=== PATIENT | male | born 1955 | race Caucasian/White ===

== ENCOUNTER 2016-06-18 17:20 | Emergency (ER) | payer OTHER ==
[2016-06-18 17:48] VITALS: BMI 33.9
--- NOTE | 2016-06-18 19:29 | PDOC ---
History of Present Illness - History of Present Illness Initial Comments: 06/18/16 22:00 The patient is a 60 year old male with a PMHx of diabetes, HTN, hyperlipidemia who presents to the ED with dizziness today. Patient went to [facility] ER three days ago for hematuria and dysuria. At [facility], the patient had a catheter placed and discharged on cefpodoxime for UTI. The patient presents today because he believes the cefpodoxime caused the dizziness. Patient also reports back, shoulder, and chest pain from a fall 10 days ago. He was seen in the ER and was discharged with pain medication for musculoskeletal pain. He reports a decreased appetite. He reports recent travel, to in April. He denies fever, chills, nausea, vomiting, diarrhea. <Laverne Gao - Last Filed: 06/19/16 00:48> <Kae Watson - Last Filed: 06/19/16 08:35> - General Chief Complaint: Urinary Catheter Problem Stated Complaint: URINARY CATHETER PROBLEM Time Seen by Provider: 06/18/16 19:29 Past History <Laverne Gao - Last Filed: 06/19/16 00:48> - Past Medical History Diabetes: Yes HTN: Yes Hypercholesterolemia: Yes - Psycho/Social/Smoking Cessation Hx Suicidal Ideation: No Smoking History: Never smoked <Kae Watson - Last Filed: 06/19/16 08:35> - Past Medical History Allergies/Adverse Reactions: Allergies Allergy/AdvReac Type Severity Reaction Status Date / Time No Known Allergies Allergy Verified 06/18/16 17:43 Home Medications: Ambulatory Orders Aspirin [ASA -] 81 mg PO DAILY 06/18/16 Atorvastatin Ca [Lipitor] 40 mg PO HS 06/18/16 Enalapril Maleate [Vasotec] 20 mg PO DAILY 06/18/16 Ezetimibe [Zetia -] 10 mg PO DAILY 06/18/16 Metformin HCl [Metformin HCl ER] 1,000 mg PO BID 06/18/16 Pioglitazone HCl 45 mg PO DAILY 06/18/16 Sitagliptin Phosphate [Januvia] 100 mg PO DAILY 06/18/16 Cefpodoxime Proxetil [Vantin -] 100 mg PO BID #10 tablet 06/19/16 Polyethylene Glycol 3350 [Miralax (For Daily Use) -] 17 gm PO DAILY #1 bottle Review of Systems - Review of Systems Comments:: 06/18/16 22:00 GENERAL/CONSTITUTIONAL: No fever or chills. No weakness. HEAD, EYES, EARS, NOSE AND THROAT: No change in vision. No ear pain or discharge. No sore throat. CARDIOVASCULAR: No chest pain or shortness of breath. RESPIRATORY: No cough, wheezing, or hemoptysis. GASTROINTESTINAL: No nausea, vomiting, diarrhea or constipation. GENITOURINARY: + hematuria, dysuria. No frequency. MUSCULOSKELETAL: + shoulder pain, bakck pain. No neck pain. SKIN: No rash NEUROLOGIC: + dizziness. No headache, loss of consciousness, or change in strength/sensation. ENDOCRINE: No increased thirst. No abnormal weight change. HEMATOLOGIC/LYMPHATIC: No anemia, easy bleeding, or history of blood clots. ALLERGIC/IMMUNOLOGIC: No hives or skin allergy. <Laverne Gao - Last Filed: 06/19/16 00:48> *Physical Exam - Vital Signs Last Vital Signs Temp Pulse Resp BP Pulse Ox 97.7 F 99 H 18 153/86 97 06/18/16 17:43 06/18/16 17:43 06/18/16 17:43 06/18/16 17:43 06/18/16 17:43 - Physical Exam Comments: 06/18/16 22:02 GENERAL: Awake, alert, and fully oriented, in no acute distress HEAD: No signs of trauma EYES: PERRLA, EOMI, sclera anicteric, conjunctiva clear ENT: Auricles normal inspection, hearing grossly normal, nares patent, oropharynx clear without exudates. Moist mucosa NECK: Normal ROM, supple, no lymphadenopathy, JVD, or masses LUNGS: Breath sounds equal, clear to auscultation bilaterally. No wheezes, and no crackles HEART: Tachycardic rate and regular rhythm, normal S1 and S2, no murmurs, rubs or gallops ABDOMEN: Soft, nontender, normoactive bowel sounds. No guarding, no rebound. No masses EXTREMITIES: Normal range of motion, no edema. No clubbing or cyanosis. No cords, erythema, or tenderness NEUROLOGICAL: Cranial nerves II through XII grossly intact. Normal speech, normal gait SKIN: Warm, Dry, normal turgor, no rashes or lesions noted. <Carlie Gaoobmissy Ibarra - Last Filed: 06/19/16 00:48> - Vital Signs Last Vital Signs Temp Pulse Resp BP Pulse Ox 97.7 F 99 H 18 153/86 97 06/18/16 17:43 06/18/16 17:43 06/18/16 17:43 06/18/16 17:43 06/18/16 17:43 <Watson,Kae - Last Filed: 06/19/16 08:35> ED Treatment Course - LABORATORY CBC & Chemistry Diagram: 06/18/16 20:21 06/18/16 20:21 - ADDITIONAL ORDERS Additional order review: Laboratory Results 06/18/16 06/18/16 06/18/16 20:21 20:21 19:50 Sodium 141 Potassium 4.0 Chloride 105 Carbon Dioxide 26 Anion Gap 10 BUN 27 H Creatinine 0.8 Creat Clearance w eGFR > 60 Random Glucose 108 H Calcium 9.7 Total Bilirubin 0.2 AST 17 ALT 23 Alkaline Phosphatase 231 H Creatine Kinase 99 Troponin I < 0.02 Total Protein 7.6 Albumin 4.1 Urine Color Yellow Urine Appearance Cloudy Urine pH 6.0 Ur Specific [place] 1.015 Urine Protein 1+ H Urine Glucose (UA) Negative Urine Ketones Negative Urine Blood 3+ H Urine Nitrite Negative Urine Bilirubin Negative Urine Urobilinogen Negative Ur Leukocyte Esterase Negative Urine RBC 3326 Urine WBC 121 Urine Mucus Rare 06/18/16 20:21 RBC 4.93 MCV 85.4 MCHC 32.9 RDW 15.9 MPV 7.7 Neutrophils % 67.6 Lymphocytes % 21.3 Monocytes % 9.7 Eosinophils % 0.9 Basophils % 0.5 - RADIOLOGY Radiograph Interpretation: 06/19/16 00:[address] Reported by Dr. Barrera Hussein Impression: Nonspecific lung nodules bilaterally may be benign or malignant. If clinically indicated followup evaluation may be needed. Small hiatal hernia. Constipation with diverticulosis without diverticulitis. Nodular nonspecific prostatomegaly extension to the inferior bladder wall. If clinically indicated recommend correlation with a PSA level. Asymmetric masslike enlargement of the right seminal vesicle. Head CT Reported by Dr. Barrera Hussein Impression: No acute intracranial hemorrhage mass effect or midline shift. Cavum septum vergae normal CSF variant space in the midline. Mild nonspecific periventricular predominant low density throughout the deep white matter is most likely due to mild small vessel ischemic white matter disease. Calcified arteriosclerosis of the cavernous carotids noted. - Medications Given in the ED: ED Medications Discontinued Medications Generic Name Dose Route Start Last Admin Trade Name Erin PRN Reason Stop Dose Admin Sodium Chloride 1,000 ml 06/18/16 19:59 06/18/16 20:37 Normal Saline - IV 06/18/16 20:00 1,000 ml ONCE ONE Administration <Laverne Gao - Last Filed: 06/19/16 00:48> - LABORATORY CBC & Chemistry Diagram: 06/18/16 20:21 06/18/16 20:21 <WatsonKae - Last Filed: 06/19/16 08:35> Medical Decision Making - Medical Decision Making 06/18/16 22:06 Patient Name: Patti Joseph THIS IS A PRELIMINARY REPORT FROM [facility] EXAM: CT abdomen without contrast and CT pelvis without contrast IMAGES: [id number] EXAM DATE AND TIME: 2016-06-18 21:25:44.0 REASON FOR EXAM: 60-year-old male hematuria Morel catheter placed. COMPARISON: None. FINDINGS: Nonspecific right middle lobe 7 mm lung nodule on axial image one. Nonspecific right middle lobe 5 mm nodule on axial image 2. Nonspecific right middle lobe 9 mm lung nodule axial image 9. Nonspecific right lower lobe 7 mm lung nodule on axial image 18. Nonspecific left lower lobe 8mm lung nodule on axial image 7. Nonspecific left lower lobe 7 mm lung nodule on axial image 11. Nonspecific left lower lobe 1 cm lung nodule on axial image 21. Multiple nonspecific 2 mm lung nodules are seen bilaterally. Basilar atelectasis and scarring. Lack of intravenous contrast limits this exam. Noncontrast evaluation of the liver gallbladder pancreas spleen adrenal glands and right kidney appear unremarkable. Benign appearing left kidney cortical cysts. No nephrolithiasis or hydronephrosis. Mild calcified arteriosclerosis of the abdominal and pelvic vasculature. Small hiatal hernia. Lack of oral contrast limits this exam. Noncontrast evaluation of the stomach small bowel and appendix appear unremarkable. No appendicitis. Constipation with diverticulosis without diverticulitis. Calcified granulomas in the prostate. Nodular nonspecific prostatomegaly extension to the inferior bladder wall. Asymmetric masslike enlargement of the right seminal vesicle measures 3 x 2.7 cm on axial image 119. Bladder is decompressed with a Morel catheter. No free air free fluid or abscess. Small umbilical and small inguinal hernias omental fat without incarceration. Moderate degenerative disc disease. Moderate spinal canal stenosis L4-5. IMPRESSION Nonspecific lung nodules bilaterally may be benign or malignant. If clinically indicated followup evaluation may be needed. Small hiatal hernia. Constipation with diverticulosis without diverticulitis. Nodular nonspecific prostatomegaly extension to the inferior bladder wall. If clinically indicated recommend correlation with a PSA level. Asymmetric masslike enlargement of the right seminal vesicle. THIS DOCUMENT HAS BEEN ELECTRONICALLY SIGNED 06/19/16 00:47 Patient Name: Patti Joseph THIS IS A PRELIMINARY REPORT FROM [facility] EXAM: CT head without contrast IMAGES: [id number] EXAM DATE AND TIME: 2016-06-19 00:06: 29.0 REASON FOR EXAM: 60-year-old male dizziness. COMPARISON: None. FINDINGS: No acute intracranial hemorrhage mass effect or midline shift. Cavum septum vergae normal CSF variant space in the midline. The ventricles sulci and basilar cisterns otherwise have a normal size and contour. Mild nonspecific periventricular predominant low density throughout the deep white matter is most likely due to mild small vessel ischemic white matter disease. Calcified arteriosclerosis of the cavernous carotids noted. The sinuses and mastoid air cells are clear within the [id number]. The calvarium is intact. IMPRESSION No acute intracranial hemorrhage mass effect or midline shift. Cavum septum vergae normal CSF variant space in the midline. Mild nonspecific periventricular predominant low density throughout the deep white matter is most likely due to mild small vessel ischemic white matter disease. Calcified arteriosclerosis of the cavernous carotids noted. THIS DOCUMENT HAS BEEN ELECTRONICALLY SIGNED 06/19/16 08:33 Pt made aware of his lung nodule findings on CT scan. He was provided a copy of the scan report. His family understands that the nodules may represent cancer and mus be followed. Pt is feeling better. No retention at this time. Urine bag is draining. Hematuria persists but is light. Pt has follow up with urology, at [facility]. He will be discarged home, as dizziness resolved and his complete workup is normal. Labs, CT head, exam normal. Pt afebrile. He was encouraged to continue with his antibiotics. <Kae Watson - Last Filed: 06/19/16 08:35> *DC/Admit/Observation/Transfer - Attestations Scribe Attestion: 06/18/16 22:02 Documentation prepared by Laverne Gao, acting as medical laboratory technician for Kae Watson MD. <Laverne Gao - Last Filed: 06/19/16 00:48> - Discharge Dispostion Admit: No <Kae Watson - Last Filed: 06/19/16 08:35> Diagnosis at time of Disposition: Dizziness, nonspecific, BPH (benign prostatic hypertrophy) with urinary obstruction, Hematuria, Urinary catheter insertion/adjustment/removal - Discharge Dispostion Disposition: HOME Condition at time of disposition: Improved - Prescriptions Prescriptions: Polyethylene Glycol 3350 [Miralax (For Daily Use) -] 17 gm PO DAILY #1 bottle Cefpodoxime Proxetil [Vantin -] 100 mg PO BID #10 tablet - Referrals Referrals: STAFF,NOT ON [Primary Care Provider] - - Patient Instructions Printed Discharge Instructions: Dizziness, Nonvertigo, DI for Pulmonary Nodule , DI for Benign Prostatic Hyperplasia Print Language: [place]
[2016-06-18] MEDS ORDERED: SODIUM CHLORIDE 0.9% 500 ML INFUS.BAG IV ONE (19:59)
[2016-06-18 20:07] LABS: URINE APPEARANCE CLOUDY; URINE BILIRUBIN NEGATIVE (NEGATIVE); URINE COLOR YELLOW; URINE GLUCOSE (UA) NEGATIVE (NEGATIVE); URINE KETONE NEGATIVE (NEGATIVE); URINE LEUK ESTERASE NEGATIVE (NEGATIVE); URINE NITRITE NEGATIVE (NEGATIVE); URINE UROBILINOGEN NEGATIVE E.U./dl (0.2-1.0)
[2016-06-18 20:13] LABS: URINE BLOOD 3+ (NEGATIVE); URINE PROTEIN 1+ (NEGATIVE)
[2016-06-18 20:14] LABS: URINE MUCUS RARE; URINE RBC 3326 /hpf (0-3); URINE WBC 121 /hpf (3-5)
[2016-06-18 20:56] LABS: BASOPHIL 0.5 % (0-2.0); EOSINOPHIL 0.9 % (0-4.5); MCH 28.1 pg (25.7-33.7); MCHC 32.9 g/dl (32.0-35.9); MEAN CELL VOLUME 85.4 fl (80-96); MEAN PLT VOLUME 7.7 fl (7.5-11.1); NEUTROPHILS 67.6 % (42.8-82.8); PLATELET COUNT 295 K/MM3 (134-434); RDW 15.9 % (11.9-15.9); WHITE BLOOD COUNT 9.2 K/mm3 (4.0-10.0)
[2016-06-18 21:02] LABS: ALBUMIN 4.1 g/dl (3.4-5.0); ANION GAP 10 (8-16); BILIRUBIN,TOTAL 0.2 mg/dL (0.2-1.0); CALCIUM 9.7 mg/dL (8.5-10.1); CO2 26 mmol/L (21-32); CREATININE 0.8 mg/dL (0.7-1.3); GLUCOSE,RANDOM 108 mg/dL (74-106); SGOT/AST 17 U/L (15-37); SGPT/ALT 23 U/L (12-78); TOT PROT 7.6 g/dl (6.4-8.2)
[2016-06-18 21:03] LABS: ALK PHOS 231 U/L (45-117)
[2016-06-18 21:05] LABS: TROPONIN I < 0.02 ng/ml (0.00-0.05)
[2016-06-19] MEDS ORDERED: LACTULOSE 20 GM/30 ML UDC (FOR ORAL USE ONLY) PO ONE (00:56)
[2016-06-19] MEDS ORDERED: POLYETHYLENE GLYCOL 3350 119 GM BTL PO ONE (00:56)
[2016-06-19] MEDS ORDERED: LACTULOSE 20 GM/30 ML UDC (FOR ORAL USE ONLY) ONE (01:02)
[2016-06-19 01:18] VITALS: BP 142/82; PULSE 89; TEMP 98
== END 2016-06-19 01:18 | disposition home or self-care (01) ==
LOC: JER 17:20
DX: N13.8 Other obstructive and reflux uropathy (principal); N40.1 Benign prostatic hyperplasia with lower urinary tract symptoms; R91.8 Other nonspecific abnormal finding of lung field; I10 Essential (primary) hypertension; E11.9 Type 2 diabetes mellitus without complications; Z79.84 Long term (current) use of oral hypoglycemic drugs; E78.00 Pure hypercholesterolemia, unspecified
CPT/HCPCS: 36415; 70450-TC; 74176; 80053; 81003; 81015; 82550; 84484; 85025; 87086; 99282-25